=== PATIENT | female | born 1960 | race Caucasian/White ===

== ENCOUNTER 2023-04-09 06:17 | Inpatient (IN) | payer MEDICAID ==
[~2023-04-09] VITALS: Ht 162.6 cm; Wt 58.7 kg
[2023-04-09 07:06] LABS: Basophils # (auto) 0.1 10 ^3/uL (0-0.2); Basophils % (auto) 0.6 % (0.0-2.0); Eosinophils # (auto) 0.2 10 ^3/uL (0-0.8); Eosinophils % (auto) 2.8 % (0.0-7.0); Hemoglobin 14.8 g/dL (12.2-16.2); Lymphocytes # (auto) 1.9 10 ^3/uL (0.4-5.4); Lymphocytes % (auto) 23.6 % (10.0-50.0); Mean Corpuscular Hemoglobin 29.4 pg (28.0-32.0); Mean Corpuscular Hgb Conc. 34.5 g/dL (32.0-36.0); Mean Corpuscular Volume 85.2 fL (80.0-100.0); Monocytes # (auto) 0.5 10 ^3/uL (0-1.3); Monocytes % (auto) 5.7 % (0.0-12.0); Neutrophils # (auto) 5.5 10 ^3/uL (1.6-8.6); Neutrophils % (auto) 67.3 % (37.0-80.0); Red Blood Cells 5.04 10^6/uL (4.0-5.20); Red Cell Distribution Width 14.4 % (11.8-14.3); White Blood Cell 8.2 10^3/uL (4.4-10.8)
[2023-04-09 07:24] LABS: Albumin 3.8 g/dL (3.4-5.0); Calcium 8.6 mg/dL (8.5-10.1); Potassium 3.6 mmol/L (3.5-5.1)
[2023-04-09 07:27] LABS: BUN/Creatinine Ratio 13.3 (10.0-20.0); Bilirubin, Total 0.5 mg/dL (0.2-1.0); Total Protein 7.5 g/dL (6.4-8.2)
[2023-04-09] MEDS ORDERED: cefTRIAXone 1GM/50ML D5W 50 ML IV ONE (10:00)
[2023-04-09] MEDS ORDERED: metroNIDAZOLE 500MG/100ML 100 ML IV ONE (10:00)
[2023-04-09] MEDS ORDERED: NITROGLYCERIN 0.4 MG SL TAB SL PRN (13:45)
[2023-04-09] MEDS ORDERED: ONDANSETRON HCL 4 MG/2 ML VIAL IV PRN (13:45)
[2023-04-09] MEDS ORDERED: MORPHINE SULFATE INJ 2 MG/ml SYRG IV PRN ×2 (13:45→22:45)
[2023-04-09 17:13] LABS: INR 0.97 (0.9-1.15); Partial Thromboplastin Time 29.3 sec (24.6-33.4)
[2023-04-09] MEDS: SODIUM CHLORIDE 0.9% 1,000 ML IV SCH ×2 (17:33→22:05)
[2023-04-09] MEDS: PIPERACILLIN-TAZOB 3.375GM 100 ML IV SCH ×2 (17:33→22:09)
[2023-04-09] MEDS: PANTOPRAZOLE 40 MG/10 ML VIAL INJ IV SCH (17:33)
[2023-04-09 19:31] LABS: Urine Bacteria FEW /hpf (None Seen); Urine Blood Negative /uL (Negative); Urine Mucus FEW (None Seen); Urine Specific Gravity 1.017 (1.001-1.035); Urine WBC 20 /hpf (0 - 5)
[2023-04-09 21:59] VITALS: BP 164/78
[2023-04-09 22:00] VITALS: BP 161/85
[2023-04-09] MEDS: hydrALAZINE HCL 20 MG/ML VL IV PRN (23:01)
[2023-04-10] MEDS ORDERED: IBUP200C14 PO (00:45)
[2023-04-10] MEDS ORDERED: LISI-275 PO (00:45)
[2023-04-10] MEDS ORDERED: ACET-1881 PO (00:45)
[2023-04-10] MEDS: ACETAMINOPHEN 500 MG TAB PO PRN ×2 (01:19→09:35)
[2023-04-10] MEDS: PIPERACILLIN-TAZOB 3.375GM 100 ML IV SCH ×3 (05:12→21:40)
[2023-04-10 05:29] VITALS: BP 117/67
[2023-04-10 06:18] LABS: Basophils # (auto) 0 10 ^3/uL (0-0.2); Basophils % (auto) 0.5 % (0.0-2.0); Eosinophils # (auto) 0.2 10 ^3/uL (0-0.8); Hematocrit 38.3 % (36.0-46.0); Hemoglobin 13.5 g/dL (12.2-16.2); Lymphocytes % (auto) 23.4 % (10.0-50.0); Mean Corpuscular Hemoglobin 29.8 pg (28.0-32.0); Mean Corpuscular Hgb Conc. 35.2 g/dL (32.0-36.0); Mean Corpuscular Volume 84.6 fL (80.0-100.0); Monocytes # (auto) 0.5 10 ^3/uL (0-1.3); Monocytes % (auto) 5.7 % (0.0-12.0); Neutrophils # (auto) 5.7 10 ^3/uL (1.6-8.6); Neutrophils % (auto) 68.4 % (37.0-80.0); Red Blood Cells 4.53 10^6/uL (4.0-5.20); White Blood Cell 8.4 10^3/uL (4.4-10.8)
[2023-04-10 06:23] LABS: Albumin 3.2 g/dL (3.4-5.0); Calcium 8.4 mg/dL (8.5-10.1); Potassium 3.7 mmol/L (3.5-5.1)
[2023-04-10] MEDS: SODIUM CHLORIDE 0.9% 1,000 ML IV SCH ×3 (06:25→23:05)
[2023-04-10 06:28] LABS: BUN/Creatinine Ratio 14.9 (10.0-20.0); Bilirubin, Total 0.6 mg/dL (0.2-1.0); Total Protein 6.2 g/dL (6.4-8.2)
[2023-04-10 09:00] VITALS: BP 121/64
[2023-04-10] MEDS: LISINOPRIL 20 MG TAB PO SCH (09:30)
[2023-04-10] MEDS: PANTOPRAZOLE 40 MG/10 ML VIAL INJ IV SCH (09:30)
[2023-04-10] MEDS ORDERED: SUMAtriptan SUCCINATE 25 MG TAB PO PRN (10:30)
[2023-04-10] MEDS ORDERED: HYDROcodone-ACET 5/325MG TAB PO PRN (10:30)
[2023-04-10 13:04] VITALS: BP 127/75
[2023-04-10 17:00] VITALS: BP 136/69
[2023-04-10] MEDS: hydrALAZINE HCL 20 MG/ML VL IV PRN (21:40)
[2023-04-10 21:59] VITALS: BP 177/76
[2023-04-10 23:04] VITALS: BP 152/77
[2023-04-11 05:00] VITALS: BP 131/67
[2023-04-11] MEDS: PIPERACILLIN-TAZOB 3.375GM 100 ML IV SCH ×2 (05:47→14:20)
[2023-04-11] MEDS: PANTOPRAZOLE 40 MG/10 ML VIAL INJ IV SCH (08:22)
[2023-04-11] MEDS: LISINOPRIL 20 MG TAB PO SCH (08:24)
[2023-04-11 08:58] LABS: Hepatitis B Surface Antibody Negative (Negative)
[2023-04-11 09:00] VITALS: BP 131/57
[2023-04-11 09:30] LABS: Hepatitis A Total Antibody Positive (Negative)
[2023-04-11 12:09] LABS: Hepatitis C Antibody Negative (Negative)
[2023-04-11] MEDS ORDERED: LISI20TA56 PO (14:16)
[2023-04-11] MEDS ORDERED: CIPR-173 PO (14:16)
[2023-04-11] MEDS ORDERED: METR-344 PO (14:16)
[2023-04-11 15:00] VITALS: BP 131/57
== END 2023-04-11 16:28 | disposition home or self-care (01) | DRG 249 ==
LOC: ER 06:17 → TELE 13:47 → TELE-WESTW 21:54
PROVIDERS: ADMIT Nurse Practitioner; ATTEND Nurse Practitioner
DX: K52.9 Noninfective gastroenteritis and colitis, unspecified (principal); F17.210 Nicotine dependence, cigarettes, uncomplicated; I10 Essential (primary) hypertension; I16.0 Hypertensive urgency; Z90.710 Acquired absence of both cervix and uterus
CPT/HCPCS: 36415; 74176; 76705; 80053; 81001; 82270; 82378; 83605; 85025; 85610; 85730; 86038; 86704; 86706; 86708; 86803; 86850; 86900; 86901; 87040; 87086; 87340; 96365; 96368; 96375; C9113; G0378; J0696; J2405; J2543; J3490